=== PATIENT | female | born 2000 | race Caucasian/White ===

== ENCOUNTER 2020-10-02 00:47 | Emergency (ER) | payer OTHER ==
[~2020-10-02] VITALS: Ht 157.5 cm; Wt 63.6 kg
[2020-10-02] MEDS ORDERED: NS 1,000 ML IV ONE (01:15)
[2020-10-02 01:30] LABS: BASO % 0.4 % (0.0-1.0); EOS # 0.2 10^3/uL (0.0-0.5); EOS % 1.7 % (0.0-3.0); HEMATOCRIT 34.6 % (36.0-47.0); HEMOGLOBIN 11.3 g/dl (12.0-15.5); LYMPH # 2.2 10^3/uL (1.5-5.0); LYMPH % 23.2 % (24.0-44.0); MEAN CORPUSCULAR HEMOGLOBIN 27.8 pg (27.0-33.0); MEAN CORPUSCULAR HGB CONC 32.7 g/dl (32.0-36.5); MEAN CORPUSCULAR VOLUME 85.2 fl (80.0-96.0); MONO # 0.9 10^3/uL (0.0-0.8); MONO % 9.6 % (0.0-5.0); NEUTROPHILS # 6.1 10^3/uL (1.5-8.5); NEUTROPHILS % 64.8 % (36.0-66.0); PLATELET COUNT, AUTOMATED 254 10^3/uL (150-450); RED BLOOD COUNT 4.06 10^6/uL (4.00-5.40); WHITE BLOOD COUNT 9.5 10^3/uL (4.0-10.0)
[2020-10-02 01:58] LABS: ALBUMIN 3.7 GM/DL (3.2-5.2); ALT/SGPT 46 U/L (12-78); BILIRUBIN,DIRECT < 0.1 MG/DL (0.0-0.2); BILIRUBIN,TOTAL 0.2 MG/DL (0.2-1.0); LIPASE 90 U/L (73-393); TOTAL PROTEIN 6.8 GM/DL (6.4-8.2)
[2020-10-02] MEDS ORDERED: MORPHINE 4 MG/ML 1ML VIAL/SYRINGE (J2270) IV PRN (02:00)
[2020-10-02] MEDS ORDERED: KETOROLAC 30 MG/ML 1ML VIAL IV ONE (02:00)
[2020-10-02 03:22] LABS: CHLAMYDIA DNA AMPLIFICATION NEGATIVE (NEGATIVE); GC DNA AMPLIFICATION NEGATIVE (NEGATIVE)
--- NOTE | 2020-10-02 03:55 | REPVR ---
PROCEDURE INFORMATION: Exam: US Pelvis Complete, Transabdominal and US Pelvis, Transvaginal and US Duplex Artery and Vein, Ovaries, Complete Exam date and time: 10/02/2020 2:41 AM Age: 20 years old Clinical indication: Dyspareunia (painful intercourse); Additional info: Severe pelvic pain sudden during coitus, no history TECHNIQUE: Imaging protocol: Real-time transabdominal and transvaginal pelvic ultrasound (complete) with image documentation. Transvaginal imaging was used for better evaluation of the endometrium, adnexa, and/or cervix. Real-time duplex ultrasound scan of the arterial and venous flow of the ovaries with B-mode, color Doppler flow and spectral waveform analysis. COMPARISON: No relevant prior studies available. FINDINGS: Uterus/cervix: Uterus measures 8.6 x 4.3 x 5.5 cm. Endometrial stripe is 1 cm. Right adnexa: Right ovary measures 2.6 x 4.1 x 2 cm. Normal waveforms. Suggestion of involuting 1.3 cm right ovarian cyst. Left adnexa: Left ovary measures 4 x 2 x 2.7 cm. Normal waveforms. Intraperitoneal space: Small fluid in the cul-de-sac. Urinary bladder: Normal. IMPRESSION: No evidence of ovarian torsion bilaterally. Suggestion of involuting 1.3 cm right ovarian cyst. Small free fluid in the cul-de-sac. Electronically signed by: John Marshall On 10/02/2020 03:54:42 AM
[2020-10-02] MEDS ORDERED: NAPR-837 PO (05:24)
[2020-10-02 05:45] VITALS: BP 111/57
== END 2020-10-02 06:05 | disposition home or self-care (01) ==
LOC: M ED 00:47
DX: R10.2 Pelvic and perineal pain (principal); F31.9 Bipolar disorder, unspecified; Z87.440 Personal history of urinary (tract) infections; Z88.0 Allergy status to penicillin
CPT/HCPCS: 76830; 76856; 80047; 80076; 81001; 83690; 84702; 85025; 87210; 87661; 93976; 96361; 96374; 99285; J1885

== ENCOUNTER → 2021-02-12 | Outpatient (REF) | payer OTHER ==
[~2021-02-12] MED LIST: NAPR-837 PO
== END ==
LOC: M PLALAB 14:45
PROVIDERS: ATTEND Obstetrics & Gynecology
DX: N97.9 Female infertility, unspecified (principal); Z01.419 Encounter for gynecological examination (general) (routine) without abnormal findings

== ENCOUNTER → 2021-02-20 | Outpatient (REF) | payer OTHER ==
[2021-02-20 18:16] LABS: ESTRADIOL 151.6 PG/ML; FOLLICLE STIMULATING HORMONE 2.4 mIU/mL; FREE T4 0.96 NG/DL (0.76-1.46); LUTEINIZING HORMONE 0.8 mIU/mL; PROGESTERONE 10.71 NG/ML; THYROID STIMULATING HORMONE 1.41 uIU/ML (0.358-3.740)
== END ==
LOC: M PLALAB 15:47
PROVIDERS: ATTEND Obstetrics & Gynecology
DX: N97.9 Female infertility, unspecified (principal)

== ENCOUNTER → 2021-02-28 | Outpatient (REF) | payer OTHER ==
[2021-02-28 15:37] LABS: ESTRADIOL 39.6 PG/ML; FOLLICLE STIMULATING HORMONE 7.4 mIU/mL; LUTEINIZING HORMONE 4.5 mIU/mL
== END ==
LOC: M PLALAB 14:48
PROVIDERS: ATTEND Obstetrics & Gynecology
DX: N97.9 Female infertility, unspecified (principal)

== ENCOUNTER 2021-05-18 08:16 | Emergency (ER) | payer OTHER ==
[~2021-05-18] VITALS: Ht 154.9 cm; Wt 68.0 kg
[2021-05-18] MEDS ORDERED: PRENTAB53 PO (08:22)
[2021-05-18 09:12] LABS: HEMATOCRIT 34.2 % (36.0-47.0); HEMOGLOBIN 11.5 g/dl (12.0-15.5); MEAN CORPUSCULAR HEMOGLOBIN 28.3 pg (27.0-33.0); MEAN CORPUSCULAR HGB CONC 33.6 g/dl (32.0-36.5); MEAN CORPUSCULAR VOLUME 84.2 fl (80.0-96.0); PLATELET COUNT, AUTOMATED 247 10^3/uL (150-450); RED BLOOD COUNT 4.06 10^6/uL (4.00-5.40); WHITE BLOOD COUNT 12.4 10^3/uL (4.0-10.0)
[2021-05-18 09:52] LABS: BLOOD UREA NITROGEN 10 MG/DL (7-18); CARBON DIOXIDE LEVEL 25 MEQ/L (21-32); CHLORIDE LEVEL 110 MEQ/L (98-107); CREATININE FOR GFR 0.54 MG/DL (0.55-1.30); GLOMERULAR FILTRATION RATE > 60.0 (>60); GLUCOSE, FASTING 82 MG/DL (70-100); HCG, SERUM QUANTITATIVE 120622 MIU/ML; POTASSIUM SERUM 3.8 MEQ/L (3.5-5.1); SODIUM LEVEL 137 MEQ/L (136-145)
[2021-05-18] MEDS ORDERED: ONDA4TAB6 PO (10:26)
[2021-05-18 10:30] VITALS: BP 101/56
--- NOTE | 2021-05-18 21:08 | ECGEPIP ---
[facility] - ED Test Date: 2021-05-18 Pat Name: IGNACIO SINGH Department: Room: - Gender: Female Gift Manager: : 2000 Requested By: Doron Badillo Order Number: [id number] Reading MD: Estee Dick Measurements Intervals [place] Rate: 71 P: 44 [place]: 118 QRS: 12 QRSD: 96 T: 6 QT: 382 QTc: 415 Interpretive Statements Normal sinus rhythm with sinus arrhythmia Incomplete right bundle branch block No prior Electronically Signed on 05-18-2021 21:07:53 EDT by Estee Dick
== END 2021-05-18 10:41 | disposition home or self-care (01) ==
LOC: M ED 08:16
DX: O99.891 Other specified diseases and conditions complicating pregnancy (principal); R55 Syncope and collapse; O21.9 Vomiting of pregnancy, unspecified; O99.411 Diseases of the circulatory system complicating pregnancy, first trimester; I45.19 Other right bundle-branch block; Z3A.01 Less than 8 weeks gestation of pregnancy; Z88.0 Allergy status to penicillin

== ENCOUNTER → 2021-05-27 | Outpatient (REF) | payer OTHER ==
[~2021-05-27] MED LIST changes: +ONDA4TAB6 PO; +PRENTAB53 PO
== END ==
LOC: M PLALAB 11:05
PROVIDERS: ATTEND Obstetrics & Gynecology
DX: Z34.01 Encounter for supervision of normal first pregnancy, first trimester (principal)

== ENCOUNTER → 2021-05-29 | Outpatient (REF) | payer OTHER | LOC: M PLALAB 09:51 | PROVIDERS: ATTEND Obstetrics & Gynecology | DX: Z34.01 Encounter for supervision of normal first pregnancy, first trimester (principal) ==

== ENCOUNTER → 2021-06-13 | Outpatient (CLI) | payer OTHER ==
[2021-06-13 15:45] LABS: HEMATOCRIT 34.4 % (36.0-47.0); HEMOGLOBIN 11.4 g/dl (12.0-15.5); MEAN CORPUSCULAR HEMOGLOBIN 28.6 pg (27.0-33.0); MEAN CORPUSCULAR HGB CONC 33.1 g/dl (32.0-36.5); MEAN CORPUSCULAR VOLUME 86.4 fl (80.0-96.0); PLATELET COUNT, AUTOMATED 238 10^3/uL (150-450); RED BLOOD COUNT 3.98 10^6/uL (4.00-5.40); WHITE BLOOD COUNT 12.2 10^3/uL (4.0-10.0)
[2021-06-13 16:41] LABS: HIV 1&2 SCREEN CENTAUR NEGATIVE (NEGATIVE)
[2021-06-13 16:59] LABS: GC DNA AMPLIFICATION NEGATIVE (NEGATIVE)
== END ==
LOC: M PLALAB 13:32
PROVIDERS: ATTEND Obstetrics & Gynecology
DX: Z34.81 Encounter for supervision of other normal pregnancy, first trimester (principal)

== ENCOUNTER → 2021-06-27 | Outpatient (CLI) | payer OTHER | LOC: M PLALAB 10:30 | PROVIDERS: ATTEND Advanced Practice Midwife | DX: Z34.81 Encounter for supervision of other normal pregnancy, first trimester (principal); Z3A.00 Weeks of gestation of pregnancy not specified ==

== ENCOUNTER → 2021-08-27 | Outpatient (CLI) | payer OTHER ==
--- NOTE | 2021-08-27 12:49 | REP ---
INDICATION: ANATOMY COMPARISON: None. TECHNIQUE: Transabdominal obstetrical ultrasound with color Doppler evaluation. FINDINGS: Examination demonstrates a single live intrauterine in cephalic presentation. motion is identified by technologist. Placenta is noted anterior and grade 0 without evidence for placenta previa or abruption. Amniotic fluid volume is normal. Cervix measures 3.1 cm in length and appears closed.. Selected gestational age: 21 weeks 4 days with AMRIT 01/03/2022. Gestational age by current measurements 22 weeks 0 days with AMRIT 12/31/2021. FHR equals 139 beats per minute. BPD: 5.3 cm at 22 weeks 2 days HC: 19.7 cm at 21 weeks 6 days AC: 17.8 cm at 22 weeks 5 days FL: 3.7 cm at 21 weeks 4 days HL: 3.4 cm at 21 weeks 5 days HC/AC: 1.11 Estimated weight 482 grams (75thpercentile). Anatomical assessment demonstrates normal structures including cranium, choroid plexus, cavum, cerebellum/posterior fossa, facial features, lungs, four-chamber heart/ventricular outflow tracts, diaphragm, stomach, cord insertion/three-vessel cord, kidneys/bladder, spine, and extremities. IMPRESSION: Single live intrauterine in cephalic presentation demonstrating appropriate estimated weight. Anatomical assessment is complete and normal. <Electronically signed by Juan Miguel Arenas > 08/27/21 [id number]
== END ==
LOC: M WHC 11:53
PROVIDERS: ATTEND Advanced Practice Midwife
DX: Z36.89 Encounter for other specified antenatal screening (principal); Z3A.18 18 weeks gestation of pregnancy

== ENCOUNTER 2021-10-04 11:44 | Emergency (ER) | payer OTHER ==
[~2021-10-04] VITALS: Ht 157.5 cm; Wt 76.5 kg
[2021-10-04] MEDS ORDERED: NS 1,000 ML IV ONE (12:25)
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
--- OUTSIDE RECORDS SUMMARY | 2021-10-04 12:47 | CCD ---
Author Author [facility] Organization [facility] Address Unknown Phone Unavailable Care Team Providers Care Advertiser Name Role Phone Jacobo Evelio Unavailable PROBLEMS Type Condition ICD9-CM Code [id number] Code Onset Dates Condition S tatus W/U Status Risk SNOMED Code Notes Problem Female infertility of unspecified origin N97.9 Active confirmed 3222388 Problem Supervision of other normal Z34.80 Ac tive confirm 195911677 Problem Female infertility N97.9 Active confirmed 6 461817 ALLERGIES Allergen (clinical drug ingredient) Drug/Non Drug Allergy do cumented on EMR Reaction Allergy Type Onset Date Status penicillin V Penicillin Hives Drug Allergy Active ENCOUNTERS from 1999 to 2021-08-31 Encounter Location Date Provider Diagnosis [facility] [address] [place] [address] [place] [address] Aug, Evelio Centeno Encounter for superv ision of normal first in second trimester Z34.02 and 21 weeks gestation of Z3A.21 IMMUNIZATIONS No Information SOCIAL HISTORY Tobacco Use: [...] REASON FOR REFERRAL No Information VITAL SIGNS Weight 161.4 lbs Aug, Weight-kg 73.21 kg Aug, Height 62 in Aug, BMI 29.52 kg/m2 Aug, Blood pressure systolic 118 mm Hg Aug, Blood pressure diastolic 70 mm Hg Aug, MEDICATIONS Medication SIG (Take, Route, Frequency, Duration) [...] Information RESULTS No Results REASON FOR VISIT 4 wk pn MEDICAL (GENERAL) HISTORY Type Description Date Medical History bipolar Medical History anxiety Medical History depression Medical History PTSD Hospitalization History mental health Goals Section No Information Health Concerns No Information MEDICAL EQUIPMENT No Information MENTAL STATUS No Information FUNCTIONAL STATUS No Information ASSESSMENTS Encounter Date Diagnosis Assessment Notes Treatment Notes Treatm ent Clinical Notes Aug, Encounter for supervision of normal first in second trimester (ICD-10 - Z34.02) Aug, 21 weeks gestation of (ICD-10 - Z3A.21 ) PLAN OF TREATMENT Next Appt Details Provider Name:Heather Prieto, 2020-10-2 6 08:00:00 AM, [address] [facility], , [place], [address], Insurance Providers Payer Name Payer Address Payer Phone Insured Name Patient Relati onship to Insured Coverage Start Date Coverage End Date [place] [phone] GIANCARLO SINGH
--- OUTSIDE RECORDS SUMMARY | 2021-10-04 12:47 | CCD ---
Author Author [facility] Organization [facility] Address Unknown Phone Unavailable Care Team Providers Care Soda Room Operator Name Role Phone Dolores Raeann Unavailable PROBLEMS Type Condition ICD9-CM Code [id number] Code Onset Dates Condition S tatus W/U Status Risk SNOMED Code Notes Problem Female infertility of unspecified origin N97.9 Active confirmed 7597837 Problem Supervision of other normal Z34.80 Ac tive confirm 841991143 Problem Female infertility N97.9 Active confirmed 6 447786 ALLERGIES Allergen (clinical drug ingredient) Drug/Non Drug Allergy do cumented on EMR Reaction Allergy Type Onset Date Status Penicillin penicillin Hives Non Drug Allergy Active ENCOUNTERS from 1999 to 2021-08-26 Encounter Location Date Provider Diagnosis [facility] [address] [place] [address] [place] [address] Jul, Raeann Bernal 16 weeks gestatio n of Z3A.16 and Encounter for supervision of normal first , second trimester Z34.02 IMMUNIZATIONS No Information SOCIAL HISTORY Tobacco Use: [...] FOR REFERRAL No Information VITAL SIGNS Weight 156 lbs Jul, Weight-kg 70.76 kg Jul, Height 62 in Jul, BMI 28.533 kg/m2 Jul, Blood pressure systolic 120 mm Hg Jul, Blood pressure diastolic 64 mm Hg Jul, MEDICATIONS Medication SIG (Take, Route, Frequency, Duration) [...] Notes Treatment Notes Treatm ent Clinical Notes Jul, 16 weeks gestation of (ICD-10 - Z3A.16 ) Jul, Encounter for supervision of normal first , second trimester (ICD-10 - Z34.02) PLAN OF TREATMENT Treatment Notes Test Name Order Date [facility] OBS COMPLETE US 2021-07-24 Next Appt Details 4 Weeks Reason:- Routine follow up Provider Name:Jennifer Gonzalez, 2021-09-19 11:00:00 AM, [address] [facility], , [place], [address], Follow Up:4 Weeks- Routine follow up Insurance Providers Payer Name Payer Address Payer Phone Insured Name Patient Relati onship to Insured Coverage Start Date Coverage End Date [address] [phone] GIANCARLO SINGH
--- OUTSIDE RECORDS SUMMARY | 2021-10-04 12:47 | CCD ---
Author Author [facility] Organization [facility] Address Unknown Phone Unavailable Care Team Providers Care Rewards Consultant Name Role Phone Divyakarlene Heather Unavailable PROBLEMS Type Condition ICD9-CM Code [id number] Code Onset Dates Condition S tatus W/U Status Risk SNOMED Code Notes Problem Female infertility of unspecified origin N97.9 Active confirmed 5655810 Problem Supervision of other normal Z34.80 Ac tive confirm 787972741 Problem Female infertility N97.9 Active confirmed 6 359834 ALLERGIES Allergen (clinical drug ingredient) Drug/Non Drug Allergy do cumented on EMR Reaction Allergy Type Onset Date Status Penicillin penicillin Hives Non Drug Allergy Active ENCOUNTERS from 1999 to 2021-08-08 Encounter Location Date Provider Diagnosis [facility] [address] [place] [address] [place] [address] Jul, Heather Prieto IMMUNIZATIONS No Information SOCIAL HISTORY Tobacco Use: [...] Notes Start Da te End Date Status Promethazine HCl 12.5 MG 1 tablet as needed Orally every 6 hrs f or 30 day(s) May, Not-Taking Ondansetron 4 MG 1 tablet on the tongue and a llow to dissolve Orally every 6 hours as needed for nausea for 30 days May, Active Unisom Not-Taking 27-1 MG 1 tablet Orally Once a day Active Vitamin B6 50 MG 1 tablet Orally Not -Taking PROCEDURES No Information RESULTS No Results REASON FOR VISIT SOB/Sick MEDICAL (GENERAL) HISTORY Type Description Date Medical History bipolar Medical History anxiety Medical History depression Medical History PTSD Hospitalization History mental health Goals Section No Information Health Concerns No Information MEDICAL EQUIPMENT No Information MENTAL STATUS No Information FUNCTIONAL STATUS No Information ASSESSMENTS No Information PLAN OF TREATMENT Next Appt Details Provider Name:Evelio Centeno, 2021-08-22 10:45:00 AM, [address] [facility], , [place], [address], Insurance Providers Payer Name Payer Address Payer Phone Insured Name Patient Relati onship to Insured Coverage Start Date Coverage End Date [address] [phone] GIANCARLO SINGH
--- OUTSIDE RECORDS SUMMARY | 2021-10-04 12:47 | CCD ---
Author Author [facility] Organization [facility] Address Unknown Phone Unavailable Care Team Providers Care Farm Loan Representative Name Role Phone Heather Prieto Unavailable PROBLEMS Type Condition ICD9-CM Code [id number] Code Onset Dates Condition S tatus W/U Status Risk SNOMED Code Notes Problem Female infertility of unspecified origin N97.9 Active confirmed 9503654 Problem Supervision of other normal Z34.80 Ac tive confirm 860922364 Problem Female infertility N97.9 Active confirmed 6 486266 ALLERGIES Allergen (clinical drug ingredient) Drug/Non Drug Allergy do cumented on EMR Reaction Allergy Type Onset Date Status penicillin V Penicillin Hives Drug Allergy Active ENCOUNTERS from 1999 to 2021-09-17 Encounter Location Date Provider Diagnosis [facility] [address] [place] [address] [place] [address] Aug, Heather Prieto Encounter for superv ision of normal first , second trimester Z34.02 ; 24 weeks gestation of Z3A.24 and Encounter for immunization Z23 IMMUNIZATIONS Vaccine Route Administration Date Status Influenza 6mo & up Fluzone IM Intramuscular Sep 16, 2021 Admi nistered SOCIAL HISTORY Tobacco Use: Social History Observation [...] FOR REFERRAL No Information VITAL SIGNS Weight 166 lbs Aug, Weight-kg 75.3 kg Aug, Height 62 in Aug, BMI 30.362 kg/m2 Aug, Blood pressure systolic 120 mm Hg Aug, Blood pressure diastolic 70 mm Hg Aug, MEDICATIONS Medication SIG (Take, Route, Frequency, Duration) Notes Start Da te End Date Status Ondansetron 4 MG 1 tablet on the tongue and a llow to dissolve Orally every 6 hours as needed for nausea for 30 days May, Active Promethazine HCl 12.5 MG 1 tablet as needed Orally every 6 hrs f or 30 day(s) May, Not-Taking Vitamin B6 50 MG 1 tablet Orally Not -Taking 27-1 MG 1 tablet Orally Once a day Active Unisom Not-Taking PROCEDURES from 1999 to 2021-09-17 Procedure Date Ordered Result Body Site Imm: Fluzone 6mo & older 0.5mL IM Influenza 2021-09-16 N/A RESULTS No Results REASON FOR VISIT 4 [...] Aug, Encounter for supervision of normal first , second trimester (ICD-10 - Z34.02) Aug, 24 weeks gestation of (ICD-10 - Z3A.24 ) Aug, Encounter for immunization (ICD-10 - Z23) PLAN OF TREATMENT Treatment Notes Test Name Order Date CBC - Complete Blood Count 2021-09-16 Type and Screen (D Rh Antibody Screen) 2021-09-16 Glucose Challenge Test 1 Hour 2021-09-16 CHLAMYDIA & GC DNA AMPLIFICAT 2021-09-16 Next Appt Details 4 Weeks Reason: Provider Name:Tra Bueno, 08:00:00 AM, [address] [facility], , [place], [address], Follow Up:4 WeeksPrenatal Insurance Providers Payer Name Payer Address Payer Phone Insured Name Patient Relati onship to Insured Coverage Start Date Coverage End Date [address] [phone] GIANCARLO SINGH
--- OUTSIDE RECORDS SUMMARY | 2021-10-04 12:48 | CCD ---
Author Author [facility] Organization [facility] Address Unknown Phone Unavailable Care Team Providers Care Offset Platemaker Name Role Phone Maring, Vivek PA Unavailable Unavailable Maring, Vivek PA Unavailable Unavailable Maring, Vivek PA Unavailable Unavailable Maring, Vivek PA Unavailable Unavailable Maring, Vivek PA Unavailable Unavailable Maring, Vivek PA Unavailable Unavailable Maring, Vivek PA Unavailable Unavailable Maring, Vivek PA Unavailable Unavailable Maring, Vivek PA Unavailable Unavailable Maring, Vivek PA Unavailable Unavailable Maring, Vivek PA Unavailable Unavailable Maring, Vivek PA Unavailable Unavailable Maring, Vivek PA Unavailable Unavailable Maring, Vivek PA Unavailable Unavailable Maring, Vivek PA Unavailable Unavailable Maring, Vivek PA Unavailable Unavailable Cannan, Rosa Maria PA Unavailable Unavailable Feola, T Elvia PA Unavailable Unavailable Feola, T Elvia PA Unavailable Unavailable Feola, T Elvia PA Unavailable Unavailable Feola, T Elvia PA Unavailable Unavailable Feola, T Elvia PA Unavailable Unavailable Feola, T Elvia PA Unavailable Unavailable Feola, T Elvia PA Unavailable Unavailable Feola, T Elvia PA Unavailable Unavailable Feola, T Elvia PA Unavailable Unavailable Feola, T Elvia PA Unavailable Unavailable Feola, T Elvia PA Unavailable Unavailable Feola, T Elvia PA Unavailable Unavailable Feola, T Elvia PA Unavailable Unavailable Feola, T Elvia PA Unavailable Unavailable Feola, T Elvia PA Unavailable Unavailable Feola, T Elvia PA Unavailable Unavailable Feola, T Elvia PA Unavailable Unavailable Feola, T Elvia PA Unavailable Unavailable Feola, T Elvia PA Unavailable Unavailable Feola, T Elvia PA Unavailable Unavailable Feola, T Elvia PA Unavailable Unavailable Feola, T Elvia PA Unavailable Unavailable Feola, T Elvia PA Unavailable Unavailable Feola, T Elvia PA Unavailable Unavailable Feola, T Elvia PA Unavailable Unavailable Feola, T Elvia PA Unavailable Unavailable Feola, T Elvia PA Unavailable Unavailable Feola, T Elvia PA Unavailable Unavailable Feola, T Elvia PA Unavailable Unavailable Feola, T Elvia PA Unavailable Unavailable Feola, T Elvia PA Unavailable Unavailable Feola, T Elvia PA Unavailable Unavailable Feola, T Elvia PA Unavailable Unavailable Feola, T Elvia PA Unavailable Unavailable Feola, T Elvia PA Unavailable Unavailable Feola, T Elvia PA Unavailable Unavailable Feola, T Elvia PA Unavailable Unavailable Feola, T Elvia PA Unavailable Unavailable Feola, T Elvia PA Unavailable Unavailable Feola, T Elvia PA Unavailable Unavailable Feola, T Elvia PA Unavailable Unavailable Nabeel Kaufman MD Unavailable Unavailable Mandeep A India OROZCO Unavailable Unavailable Mandeep A India OROZCO Unavailable Unavailable Mandeep A India OROZCO Unavailable Unavailable Mandeep A India OROZCO Unavailable Unavailable Mandeep A India OROZCO Unavailable Unavailable Mandeep A India OROZCO Unavailable Unavailable Mandeep A India OROZCO Unavailable Unavailable Mandeep A India OROZCO Unavailable Unavailable Mandeep A India OROZCO Unavailable Unavailable Mandeep A India OROZCO Unavailable Unavailable Mandeep A India OROZCO Unavailable Unavailable Mandeep A India OROZCO Unavailable Unavailable Mandeep A India OROZCO Unavailable Unavailable Mandeep A India OROZCO Unavailable Unavailable Mandeep A India OROZCO Unavailable Unavailable Mandeep A India OROZCO Unavailable Unavailable Mandeep A India OROZCO Unavailable Unavailable Mandeep A India OROZCO Unavailable Unavailable Mandeep A India OROZCO Unavailable Unavailable Mandeep A India OROZCO Unavailable Unavailable Mandeep A India OROZCO Unavailable Unavailable Mandeep A India OROZCO Unavailable Unavailable Mandeep A India OROZCO Unavailable Unavailable Mandeep A India OROZCO Unavailable Unavailable Mandeep A India OROZCO Unavailable Unavailable Mandeep A India OROZCO Unavailable Unavailable Mandeep A India OROZCO Unavailable Unavailable Mandeep A India OROZCO Unavailable Unavailable Mandeep A India OROZCO Unavailable Unavailable Mandeep A India OROZCO Unavailable Unavailable Mandeep A India OROZCO Unavailable Unavailable Mandeep A India MD Unavailable Unavailable Mandeep A India MD Unavailable Unavailable Mandeep A India OROZCO Unavailable Unavailable Mandeep A India OROZCO Unavailable Unavailable Mandeep A India OROZCO Unavailable Unavailable Mandeep A India OROZCO Unavailable Unavailable Mandeep A India OROZCO Unavailable Unavailable Mandeep A India OROZCO Unavailable Unavailable Mandeep A India OROZCO Unavailable Unavailable Mandeep, A India OROZCO Unavailable Unavailable Mandeep, A India OROZCO Unavailable Unavailable Mandeep, A India OROZCO Unavailable Unavailable Mandeep, A India OROZCO Unavailable Unavailable Mandeep, A India OROZOC Unavailable Unavailable Mandeep, A [place] OROZCO Unavailable Unavailable Mandeep, A India OROZCO Unavailable Unavailable Mandeep, A India OROZCO Unavailable Unavailable Mandeep, A India OROZCO Unavailable Unavailable Mandeep, A India OROZCO Unavailable Unavailable Mandeep, A India OROZCO Unavailable Unavailable Mandeep, A India OROZCO Unavailable Unavailable Mandeep, A India OROZCO Unavailable Unavailable Mandeep, A India OROZCO Unavailable Unavailable Mandeep, A India OROZCO Unavailable Unavailable Mandeep, A India OROZCO Unavailable Unavailable Mandeep, A India OROZCO Unavailable Unavailable Mandeep, A India ROOZCO Unavailable Unavailable Mandeep, A India OROZCO Unavailable Unavailable Mandeep, A India OROZCO Unavailable Unavailable Mandeep, A India OROZCO Unavailable Unavailable Mandeep, A India OROZCO Unavailable Unavailable Mandeep, A India OROZCO Unavailable Unavailable Mandeep, A India OROZCO Unavailable Unavailable Mandeep, A India OROZCO Unavailable Unavailable Mandeep, A India OROZCO Unavailable Unavailable Mandeep, A India OROZCO Unavailable Unavailable Mandeep, A India OROZCO Unavailable Unavailable Mandeep, A India OROZCO Unavailable Unavailable Mandeep, A India OROZCO Unavailable Unavailable Mandeep, A India OROZCO Unavailable Unavailable Mandeep, A India OROZCO Unavailable Unavailable Mandeep, A India OROZCO Unavailable Unavailable Mandeep, A India OROZCO Unavailable Unavailable Mandeep, A India OROZCO Unavailable Unavailable Mandeep, A India OROZCO Unavailable Unavailable Mandeep, A India OROZCO Unavailable Unavailable Mandeep, A India OROZCO Unavailable Unavailable Mandeep, A India OROZCO Unavailable Unavailable Mandeep, A India OROZCO Unavailable Unavailable Mandeep, A India OROZCO Unavailable Unavailable CASAS, G EDWARD RPA Unavailable Unavailable CASAS, G EDWARD RPA Unavailable Unavailable CASAS, G EDWARD RPA Unavailable Unavailable CASAS, G EDWARD RPA Unavailable Unavailable CASAS, G EDWARD RPA Unavailable Unavailable CASAS, G EDWARD RPA Unavailable Unavailable CASAS, G EDWARD RPA Unavailable Unavailable CASAS, G EDWARD RPA Unavailable Unavailable CASAS, G EDWARD RPA Unavailable Unavailable CASAS, G EDWARD RPA Unavailable Unavailable CASAS, G EDWARD RPA Unavailable Unavailable CASAS, G EDWARD RPA Unavailable Unavailable CASAS, G EDWARD RPA Unavailable Unavailable CASAS, G EDWARD RPA Unavailable Unavailable CASAS, G EDWARD RPA Unavailable Unavailable CASAS, G EDWARD RPA Unavailable Unavailable CASAS, G EDWARD RPA Unavailable Unavailable CASAS, G EDWARD RPA Unavailable Unavailable CASAS, G EDWARD RPA Unavailable Unavailable CASAS, G EDWARD RPA Unavailable Unavailable CASAS, G EDWARD RPA Unavailable Unavailable CASAS, G EDWARD RPA Unavailable Unavailable CASAS, G EDWARD RPA Unavailable Unavailable CASAS, G EDWARD RPA Unavailable Unavailable CASAS, G EDWARD RPA Unavailable Unavailable CASAS, G EDWARD RPA Unavailable Unavailable CASAS, G EDWARD RPA Unavailable Unavailable CASAS, G EDWARD RPA Unavailable Unavailable CASAS, G EDWARD RPA Unavailable Unavailable CASAS, G EDWARD RPA Unavailable Unavailable CASAS, G EDWARD RPA Unavailable Unavailable CASAS, G EDWARD RPA Unavailable Unavailable CASAS, G EDWARD RPA Unavailable Unavailable CASAS, G EDWARD RPA Unavailable Unavailable CASAS, G EDWARD RPA Unavailable Unavailable CASAS, G EDWARD RPA Unavailable Unavailable CASAS, G EDWARD RPA Unavailable Unavailable Boston Concepcion MD Unavailable Unavailable Boston Concepcion MD Unavailable Unavailable Boston Concepcion MD Unavailable Unavailable Boston Concepcion MD Unavailable Unavailable Boston Concepcion MD Unavailable Unavailable Boston Concepcion MD Unavailable Unavailable Boston Concepcion MD Unavailable Unavailable Boston Concepcion MD Unavailable Unavailable Boston Concepcion MD Unavailable Unavailable Boston Concepcion MD Unavailable Unavailable Boston Concepcion MD Unavailable Unavailable Boston Concepcion MD Unavailable Unavailable Boston Concepcion MD Unavailable Unavailable Boston Concepcion MD Unavailable Unavailable Boston Concepcion MD Unavailable Unavailable Boston Concepcion MD Unavailable Unavailable Boston Concepcion MD Unavailable Unavailable Boston Concepcion MD Unavailable Unavailable Boston Concepcion MD Unavailable Unavailable Boston Concepcion MD Unavailable Unavailable Boston Concepcion MD Unavailable Unavailable Boston Concepcion MD Unavailable Unavailable Boston Concepcion MD Unavailable Unavailable Boston Concepcion MD Unavailable Unavailable Boston Concepcion MD Unavailable Unavailable Laith Jose PA-C Unavailable Unavailable Laith Jose PA-C Unavailable Unavailable Laith Jose PA-C Unavailable Unavailable Laith Jose PA-C Unavailable Unavailable Laith Joseer PA-C Unavailable Unavailable Laith Jose PA-C Unavailable Unavailable Laith Joseopher PA-C Unavailable Unavailable Laith Joseopher PA-C Unavailable Unavailable Laith Joseer PA-C Unavailable Unavailable Laith Joseopher PA-C Unavailable Unavailable Jose, M Christopher PA-C Unavailable Unavailable Jose, M Christopher PA-C Unavailable Unavailable Jose, M Christopher PA-C Unavailable Unavailable Jose, M Christopher PA-C Unavailable Unavailable Jose, M Christopher PA-C Unavailable Unavailable Jose, M Christopher PA-C Unavailable Unavailable Jose, M Christopher PA-C Unavailable Unavailable Jose, M Christopher PA-C Unavailable Unavailable Jose, M Christopher PA-C Unavailable Unavailable Jose, M Christopher PA-C Unavailable Unavailable Jose, M Christopher PA-C Unavailable Unavailable Jose, M Christopher PA-C Unavailable Unavailable Jose, M Christopher PA-C Unavailable Unavailable Jose, M Christopher PA-C Unavailable Unavailable Jose, M Christopher PA-C Unavailable Unavailable Jose, M Christopher PA-C Unavailable Unavailable Re-disclosure Warning The records that you are about to access may contain information from federally-assisted alcohol or drug abuse programs. If such information is present, then the following federally mandated warning applies: This information has been disclosed to you from records protected by federal confidentiality rules (42 CFR part 2). The federal rules prohibit you from making any further disclosure of this information unless further disclosure is expressly permitted by the written consent of the person to whom it pertains or as otherwise permitted by 42 CFR part 2. A general authorization for the release of medical or other information is NOT sufficient for this purpose. The Federal rules restrict any use of the information to criminally investigate or prosecute any alcohol or drug abuse patient.The records that you are about to access may contain highly sensitive health information, the redisclosure of which is protected by Article 27-F of the [facility] Public Health law. If you continue you may have access to information: Regarding HIV / AIDS; Provided by facilities licensed or operated by the [facility] Office of Mental Health; or Provided by the [facility] Office for People With Developmental Disabilities. If such information is present, then the following [facility] mandated warning applies: This information has been disclosed to you from confidential records which are protected by state law. State law prohibits you from making any further disclosure of this information without the specific written consent of the person to whom it pertains, or as otherwise permitted by law. Any unauthorized further disclosure in violation of state law may result in a fine or care home sentence or both. A general authorization for the release of medical or other information is NOT sufficient authorization for further disc losure. Encounters Encounter Providers Location Date Indications Data Source(s ) ( ESTOB) [facility] Est OB [address] [place] [address] 09/16/2021 12:00:00 AM EDT eCW1 ([facility]) Unknown [address] [facility] [address] 09/08/2021 12:00:00 AM EDT eCW1 ([facility]) ( ESTOB) [facility] Est OB [address] [place] [address] 08/22/2021 12:00:00 AM EDT eCW1 ([facility]) Unknown [address] [facility] [address] 08/07/2021 12:00:00 AM EDT eCW1 ([facility]) Outpatient Attender: Stephane MALLOYCAttender: Karma SCHNEIDER 08/06/2021 12:12:18 PM EDT - 08/06/2021 12:36:51 PM EDT [facility] ([facility]) ( ESTOB) [facility] Est OB [address] [place] [address] 07/24/2021 12:00:00 AM EDT eCW1 ([facility]) Outpatient Attender: Stephane Jose PA-C 07/18/2021 01:10:46 PM EDT - 07/18/2021 01:56:45 PM EDT [facility] Unknown [address] [facility] [address] 07/07/2021 12:00:00 AM EDT eCW1 ([facility]) Unknown [address] [facility] [address] 07/04/2021 12:00:00 AM EDT eCW1 ([facility]) ( ESTOB) [facility] Est OB [address] [place] [address] 06/26/2021 12:00:00 AM EDT eCW1 ([facility]) [place] [address] [facility] [address] 06/13/2021 12:00:00 AM EDT eCW1 ([facility]) [place] [address] [facility] [address] 06/09/2021 12:00:00 AM EDT eCW1 ([facility]) (WC ESTOB) [facility] [address] [place] [address] 05/29/2021 12:00:00 AM EDT eCW1 ([facility]) Outpatient Attender: OSEI CASAS RPA 05/18 11:32:15 AM EDT - 05/18/2021 02:04:00 PM EDT [facility] ([facility] ) Outpatient Attender: India Kaufman MD Main Office 05/02/2021 11:15:0 0 AM EDT [facility] ([facility] Outpatient Attender: India Kaufman MD Main Office 04/23/2021 10:30:0 0 AM EDT [facility] ([facility] [place] [address] [facility] [address] 04/08/2021 12:00:00 AM EDT eCW1 ([facility]) Outpatient Attender: Suzy Concepcion MDAttender: Vivek SCHNEIDER 03/19/2021 01:07:04 PM EDT - 03/19/2021 01:31:40 PM EDT [facility] ( [facility]) Outpatient Attender: Vivek SCHNEIDER 03/14/20 10:40:43 AM EDT - 03/14/2021 11:20:17 AM EDT [facility] ([facility] ) [place]patient [address] [facility] [address] 02/12/2021 12:00:00 AM EDT eCW1 ([facility]) Outpatient Attender: Suzy Concepcion MD 0 01/12/2021 04:19:52 PM EST - 01/12/2021 04:46:36 PM EST [facility] ([facility]) Outpatient Attender: Elvia SCHNEIDER 021 08:03:05 AM EST - 01/07/2021 08:30:40 AM EST [facility] ([facility] ) Outpatient Attender: Vivek Fergusonxochilt SCHNEIDER 12/20/19 12:53:00 PM EST - 12/20/2020 01:04:28 PM EST [facility] ([facility] ) Outpatient Attender: Elvia SCHNEIDER 021 10:03:52 AM EST - 12/18/2020 10:59:42 AM EST [facility] ([facility] ) Immunizations Vaccine Date Status Description Data Source(s) New in 2011. IIV4 09/16/2021 09:19:00 AM EDT completed eCW1 ([facility]) Medications Medication Brand Name Start Date Product Form Dose Route Admi nistrative Instructions Pharmacy Instructions Status Indications Reaction Description Data Source(s) Promethazine Hydrochloride 12.5 MG Oral Tablet Prometh azine HCl 12.5 MG Promethazine HCl 12.5 MG 06/09/2021 12:00:00 AM EDT 1.0 {tablet_as_ needed} suspended Promethazine HCl 12.5 MG eCW1 ([facility]) Promethazine Hydrochloride 12.5 MG Oral Tablet Prometh azine HCl 12.5 MG Promethazine HCl 12.5 MG 06/09/2021 12:00:00 AM EDT 1.0 {tablet_as_ needed} suspended Promethazine HCl 12.5 MG eCW1 ([facility]) Promethazine Hydrochloride 12.5 MG Oral Tablet Prometh azine HCl 12.5 MG Promethazine HCl 12.5 MG 06/09/2021 12:00:00 AM EDT 1.0 {tablet_as_ needed} suspended Promethazine HCl 12.5 MG eCW1 ([facility]) Promethazine Hydrochloride 12.5 MG Oral Tablet Prometh azine HCl 12.5 MG Promethazine HCl 12.5 MG 06/09/2021 12:00:00 AM EDT 1.0 {tablet_as_ needed} suspended Promethazine HCl 12.5 MG eCW1 ([facility]) Promethazine Hydrochloride 12.5 MG Oral Tablet Prometh azine HCl 12.5 MG Promethazine HCl 12.5 MG 06/09/2021 12:00:00 AM EDT 1.0 {tablet_as_ needed} suspended Promethazine HCl 12.5 MG eCW1 ([facility]) Promethazine Hydrochloride 12.5 MG Oral Tablet Prometh azine HCl 12.5 MG Promethazine HCl 12.5 MG 06/09/2021 12:00:00 AM EDT 1.0 {tablet_as_ needed} suspended Promethazine HCl 12.5 MG eCW1 ([facility]) Promethazine Hydrochloride 12.5 MG Oral Tablet Prometh azine HCl 12.5 MG Promethazine HCl 12.5 MG 06/09/2021 12:00:00 AM EDT 1.0 {tablet_as_ needed} active Promethazine HCl 12.5 MG eCW1 ([facility]) Promethazine Hydrochloride 12.5 MG Oral Tablet Prometh azine HCl 12.5 MG Promethazine HCl 12.5 MG 06/09/2021 12:00:00 AM EDT 1.0 {tablet_as_ needed} active Promethazine HCl 12.5 MG eCW1 ([facility]) Promethazine Hydrochloride 12.5 MG Oral Tablet Prometh azine HCl 12.5 MG Promethazine HCl 12.5 MG 06/09/2021 12:00:00 AM EDT 1.0 {tablet_as_ needed} suspended Promethazine HCl 12.5 MG eCW1 ([facility]) Promethazine Hydrochloride 12.5 MG Oral Tablet Prometh azine HCl 12.5 MG Promethazine HCl 12.5 MG 06/09/2021 12:00:00 AM EDT 1.0 {tablet_as_ needed} suspended Promethazine HCl 12.5 MG eCW1 ([facility]) Ondansetron 4 MG Disintegrating Oral Tablet Ondansetron 4 MG 05/29/2021 12:00:00 AM EDT 1.0 {tablet_on_the_tongue_and_allow_to_dissolve} active Ondansetron 4 MG eCW1 ([facility]) Ondansetron 4 MG Disintegrating Oral Tablet Ondansetron 4 MG 05/29/2021 12:00:00 AM EDT 1.0 {tablet_on_the_tongue_and_allow_to_dissolve} active Ondansetron 4 MG eCW1 ([facility]) Ondansetron 4 MG Disintegrating Oral Tablet Ondansetron 4 MG 05/29/2021 12:00:00 AM EDT 1.0 {tablet_on_the_tongue_and_allow_to_dissolve} active Ondansetron 4 MG eCW1 ([facility]) Ondansetron 4 MG Disintegrating Oral Tablet Ondansetron 4 MG 05/29/2021 12:00:00 AM EDT 1.0 {tablet_on_the_tongue_and_allow_to_dissolve} active Ondansetron 4 MG eCW1 ([facility]) Ondansetron 4 MG Disintegrating Oral Tablet Ondansetron 4 MG 05/29/2021 12:00:00 AM EDT 1.0 {tablet_on_the_tongue_and_allow_to_dissolve} active Ondansetron 4 MG eCW1 ([facility]) Ondansetron 4 MG Disintegrating Oral Tablet Ondansetron 4 MG 05/29/2021 12:00:00 AM EDT 1.0 {tablet_on_the_tongue_and_allow_to_dissolve} active Ondansetron 4 MG eCW1 ([facility]) Ondansetron 4 MG Disintegrating Oral Tablet Ondansetron 4 MG 05/29/2021 12:00:00 AM EDT 1.0 {tablet_on_the_tongue_and_allow_to_dissolve} active Ondansetron 4 MG eCW1 ([facility]) Ondansetron 4 MG Disintegrating Oral Tablet Ondansetron 4 MG 05/29/2021 12:00:00 AM EDT 1.0 {tablet_on_the_tongue_and_allow_to_dissolve} active Ondansetron 4 MG eCW1 ([facility]) Ondansetron 4 MG Disintegrating Oral Tablet Ondansetron 4 MG 05/29/2021 12:00:00 AM EDT 1.0 {tablet_on_the_tongue_and_allow_to_dissolve} active Ondansetron 4 MG eCW1 ([facility]) Ondansetron 4 MG Disintegrating Oral Tablet Ondansetron 4 MG 05/29/2021 12:00:00 AM EDT 1.0 {tablet_on_the_tongue_and_allow_to_dissolve} active Ondansetron 4 MG eCW1 ([facility]) Ondansetron 4 MG Disintegrating Oral Tablet Ondansetron 4 MG 05/29/2021 12:00:00 AM EDT 1.0 {tablet_on_the_tongue_and_allow_to_dissolve} active Ondansetron 4 MG eCW1 ([facility]) topiramate 25 MG Oral Tablet Topiramate 04/23/2021 12:00:00 AM EDT ORAL completed [facility] ([facility] Fluticasone Propionate Nasal [place] Fluticasone Propionate Na luciana [place] 04/23/2021 12:00:00 AM EDT active M [facility] ([facility] Insurance Providers Payer name Policy type / Coverage type Policy ID Covered constitution party ID Covered constitution party's relationship to velázquez Policy Velázquez Plan Information Family Health Plan / [id number] Spouse [id number] FFS Self Pay [id number] Self [id number] Family Health Plan / [id number] Spouse [id number] [facility] [id number] O UNA[facility]ILABLE [facility] [id number] [facility] [id number] Problems, Conditions, and Diagnoses Code Display Name Description Problem Type Effective Dates Data Source(s) Z34.80 care Supervision of other normal [place] 05/19/2021 12:00:00 AM EDT eCW1 ([facility]) N97.9 Female infertility Female infertility of unspecified o rigin Problem 04/08/2021 12:00:00 AM EDT eCW1 ([facility]) N97.9 Female infertility Female infertility Problem 12:00:00 AM EDT eCW1 ([facility]) Surgeries/Procedures Procedure Description Date Indications Data Source(s) INFLUENZA VIRUS VACC SPLIT PRSRV FREE 3 YRS/> IM 09/16 12:00:00 AM EDT eCW1 ([facility]) Results ID Date Data Source [id number] 08/06/2021 12:30:00 PM EDT [facility] Name Value Range Interpretation Code Description Data Chioma rce(s) Supporting Document(s) SARS-CoV-2 RNA Resp Ql ERIBERTO+probe NOT DETECTED [facility] This lab was ordered by DEBORA ellis and reported by DEBORA Solano. ID Date Data Source [id number] 05/02/2021 11:11:00 AM EDT [facility] ([facility] Name Value Range Interpretation Code Description Data Chioma rce(s) Supporting Document(s) Test Urine Laboratory test result [facility] ([facility] ID Date Data Source ANTI MULLERIAN HORMONE 02/20/2021 12:00:00 AM EDT eCW1 ([facility]) Name Value Range Interpretation Code Description Data Chioma rce(s) Supporting Document(s) 2.78 . ANTI MULLERIAN HORMONE eCW1 ([facility]) ID Date Data Source TESTOSTERONE FREE & TOTAL 02/20/2021 12:00:00 AM EDT eCW1 ([facility]) Name Value Range Interpretation Code Description Data Chioma rce(s) Supporting Document(s) 19.0 8-48 TESTOSTERONE TOTAL FOR T&D eCW 1 ([facility]) 0.8 0.0-4.2 TESTOSTERONE FREE (DIRECT ) eCW1 ([facility]) ID Date Data Source Dehydroepiandrosterone Sulfate 02/20/2021 12:00:00 AM EDT eC W1 ([facility]) Name Value Range Interpretation Code Description Data Chioma rce(s) Supporting Document(s) Dehydroepiandrosterone sulfate (DHEA-S) [Mass/volume] in Ser um or Plasma 280.0 110.0-431.7 DEHYDROEPIANDROSTERONE SULFATE eCW1 ([facility]) ID Date Data Source PROGESTERONE 02/20/2021 12:00:00 AM EDT eCW1 ([facility]) Name Value Range Interpretation Code Description Data Chioma rce(s) Supporting Document(s) 10.71 PROGESTERONE eCW1 ([facility]) ID Date Data Source TSH 02/20/2021 12:00:00 AM EDT eCW1 ([facility]) Name Value Range Interpretation Code Description Data Chioma rce(s) Supporting Document(s) 1.410 0.358-3.740 THYROID STIMULATING HORM ONE eCW1 ([facility]) ID Date Data Source PROLACTIN 02/20/2021 12:00:00 AM EDT eCW1 ([facility]) Name Value Range Interpretation Code Description Data Chioma rce(s) Supporting Document(s) 12.0 PROLACTIN eCW1 ([facility]) ID Date Data Source FREE T4 02/20/2021 12:00:00 AM EDT eCW1 ([facility]) Name Value Range Interpretation Code Description Data Chioma rce(s) Supporting Document(s) 0.96 0.76-1.46 FREE T4 eCW1 ([facility]) ID Date Data Source [facility] EVAL 02/20/2021 12:00:00 AM EDT eCW1 ([facility]) Name Value Range Interpretation Code Description Data Chioma rce(s) Supporting Document(s) 0.8 LUTEINIZING HORMONE eCW1 ([facility]) 2.4 FOLLICLE STIMULATING HORMONE e CW1 ([facility]) ID Date Data Source ESTRADIOL 02/20/2021 12:00:00 AM EDT eCW1 ([facility]) Name Value Range Interpretation Code Description Data Chioma rce(s) Supporting Document(s) 151.6 ESTRADIOL eCW1 ([facility]) ID Date Data Source PAP REQUEST FOR SERVICE 02/12/2021 12:00:00 AM EDT eCW1 ([facility]) Name Value Range Interpretation Code Description Data Chioma rce(s) Supporting Document(s) PAP REQUEST FOR SERVICE eCW1 ( [facility]) ID Date Data Source [id number] 01/12/2021 12:00:00 AM EST [facility] Name Value Range Interpretation Code Description Data Chioma rce(s) Supporting Document(s) SARS coronavirus 2 RNA [Presence] in Res piratory specimen by ERIBERTO with probe detection NEGATIVE [facility] and reported by [employer]. ID Date Data Source [id number] 01/12/2021 12:00:00 AM EST [facility] Name Value Range Interpretation Code Description Data Chioma rce(s) Supporting Document(s) Carestart Rapid COVID Antigen Test Negative [facility] This lab was reported by [facility] agustín. ID Date Data Source [id number] 01/07/2021 12:00:00 AM EST [facility] Name Value Range Interpretation Code Description Data Chioma rce(s) Supporting Document(s) SARS coronavirus 2 RNA [Presence] in Res piratory specimen by ERIBERTO with probe detection NEGATIVE [facility] This lab was ordered by [facility] jd Gonzalez and reported by [facility]. ID Date Data Source [id number] 01/07/2021 12:00:00 AM EST [facility] Name Value Range Interpretation Code Description Data Chioma rce(s) Supporting Document(s) Carestart Rapid COVID Antigen Test Negative [facility] This lab was reported by [facility] agustín. ID Date Data Source [id number] 12/18/2020 12:00:00 AM EST [facility] Name Value Range Interpretation Code Description Data Chioma rce(s) Supporting Document(s) SARS coronavirus 2 RNA [Presence] in Res piratory specimen by ERIBERTO with probe detection NEGATIVE [facility] This lab was ordered by [facility] jd [place] and reported by [facility]. ID Date Data Source [id number] 12/18/2020 12:00:00 AM EST [facility] Name Value Range Interpretation Code Description Data Chioma rce(s) Supporting Document(s) Carestart Rapid COVID Antigen Test Negative [facility] This lab was reported by [facility] agustín. Procedure Social History Code Duration Value Status Description Data Source(s ) Smoking 09/16/2021 12:00:00 AM EDT Never Smoker completed Never S moker eCW1 ([facility]) Smoking 08/30/2021 12:00:00 AM EDT Never Smoker completed Never S moker eCW1 ([facility]) Smoking 08/30/2021 12:00:00 AM EDT Never Smoker completed Never S moker eCW1 ([facility]) Smoking 08/22/2021 12:00:00 AM EDT Never Smoker completed Never S moker eCW1 ([facility]) Smoking 07/21/2021 12:00:00 AM EDT Never Smoker completed Never S moker eCW1 ([facility]) Smoking 05/29/2021 12:00:00 AM EDT Never Smoker completed Never S moker eCW1 ([facility]) Smoking 05/29/2021 12:00:00 AM EDT Never Smoker completed Never S moker eCW1 ([facility]) Smoking 05/29/2021 12:00:00 AM EDT Never Smoker completed Never S moker eCW1 ([facility]) Smoking 05/29/2021 12:00:00 AM EDT Never Smoker completed Never S moker eCW1 ([facility]) Smoking 05/29/2021 12:00:00 AM EDT Never Smoker completed Never S moker eCW1 ([facility]) Smoking 05/29/2021 12:00:00 AM EDT Never Smoker completed Never S moker eCW1 ([facility]) Smoking 05/02/2021 12:00:00 AM EDT Patient has never smoked co mpleted Patient has never smoked MEDENT ([facility] Smoking 04/07/2021 12:00:00 AM EDT Never Smoker completed Never S moker eCW1 ([facility]) Smoking 02/12/2021 12:00:00 AM EDT Never Smoker completed Never S moker eCW1 ([facility]) Vital Signs ID Date Data Source UNK Name Value Range Interpretation Code Description Data Source(s) Body mass index (BMI) [Ratio] 30.362 kg/m2 30.3 62 kg/m2 eCW1 ([facility]) Body weight 166 [lb_av] 166 [lb_av] eCW1 ([facility]) Body weight 75.3 kg 75.3 kg eCW1 ([facility]) Body height 62 [in_i] 62 [in_i] eCW1 ([facility]) Systolic blood pressure 120 mm[Hg] 120 mm[Hg] e CW1 ([facility]) Diastolic blood pressure 70 mm[Hg] 70 mm[Hg] eCW1 ([facility]) Body weight 161.4 [lb_av] 161.4 [lb_av] eCW1 ([facility]) Body weight 73.21 kg 73.21 kg eCW1 ([facility]) Body height 62 [in_i] 62 [in_i] eCW1 ([facility]) Body mass index (BMI) [Ratio] 29.52 kg/m2 29.52 kg/m2 eCW1 ([facility]) Systolic blood pressure 118 mm[Hg] 118 mm[Hg] e CW1 ([facility]) Diastolic blood pressure 70 mm[Hg] 70 mm[Hg] eCW1 ([facility]) Body weight 156 [lb_av] 156 [lb_av] eCW1 ([facility]) Body weight 70.76 kg 70.76 kg eCW1 ([facility]) Body height 62 [in_i] 62 [in_i] eCW1 ([facility]) Body mass index (BMI) [Ratio] 28.533 kg/m2 28.5 33 kg/m2 eCW1 ([facility]) Systolic blood pressure 120 mm[Hg] 120 mm[Hg] e CW1 ([facility]) Diastolic blood pressure 64 mm[Hg] 64 mm[Hg] eCW1 ([facility]) Body weight 155 [lb_av] 155 [lb_av] eCW1 ([facility]) Body weight 70.31 kg 70.31 kg W1 ([facility]) Body height 62 [in_i] 62 [in_i] eCW1 ([facility]) Body mass index (BMI) [Ratio] 28.35 kg/m2 28.35 kg/m2 W1 ([facility]) Systolic blood pressure 110 mm[Hg] 110 mm[Hg] e CW1 ([facility]) Diastolic blood pressure 68 mm[Hg] 68 mm[Hg] eCW1 ([facility]) Body weight 151.4 [lb_av] 151.4 [lb_av] eCW1 ([facility]) Body mass index (BMI) [Ratio] 27.691 kg/m2 27.6 91 kg/m2 W1 ([facility]) Systolic blood pressure 108 mm[Hg] 108 mm[Hg] e CW1 ([facility]) Diastolic blood pressure 68 mm[Hg] 68 mm[Hg] eCW1 ([facility]) Body weight 68.67 kg 68.67 kg eCW1 ([facility]) Body height 62 [in_i] 62 [in_i] eCW1 ([facility]) Systolic blood pressure 109 mm[Hg] 109 mm[Hg] M EDENT ([facility] Diastolic blood pressure 68 mm[Hg] 68 mm[Hg] MEDENT ([facility] Heart rate 89 /min 89 /min [facility] ([facility] Body temperature 97.0 [degF] 97.0 [degF] [facility] ([facility] Respiratory rate 17 /min 17 /min [facility] ( [facility] Body height 61.50 [in_i] 61.50 [in_i] MEDENT ([facility] 5'1.50" Body weight 152.00 [lb_av] 152.00 [lb_av] MEDEN T ([facility] Oxygen saturation in Arterial blood by Pulse oximetry 98 % 98 % MEDENT ([facility] [place] body weight 105 [lb_av] 105 [lb_av] MEDEN T ([facility] Body mass index (BMI) [Ratio] 28.3 kg/m2 28.3 k g/m2 [facility] ([facility] Body weight 152.38 [lb_av] 152.38 [lb_av] MEDEN T ([facility] Body mass index (BMI) [Ratio] 28.3 kg/m2 28.3 k g/m2 [facility] ([facility] Body height 61.50 [in_i] 61.50 [in_i] MEDENT ([facility] 5'1.50" [place] body weight 105 [lb_av] 105 [lb_av] MEDEN T ([facility] Heart rate 82 /min 82 /min MEDENT ([facility] Oxygen saturation in Arterial blood by Pulse oximetry 99 % 99 % MEDENT ([facility] Body temperature 97.6 [degF] 97.6 [degF] MEDENT ([facility] Respiratory rate 14 /min 14 /min MED[facility] ( [facility] Systolic blood pressure 110 mm[Hg] 110 mm[Hg] M EDENT ([facility] Diastolic blood pressure 66 mm[Hg] 66 mm[Hg] MEDENT ([facility] Body height 62 [in_i] 62 [in_i] W1 ([facility]) Body weight 150.6 [lb_av] 150.6 [lb_av] eCW1 ([facility]) Body weight 68.31 kg 68.31 kg eCW1 ([facility]) Systolic blood pressure 108 mm[Hg] 108 mm[Hg] e CW1 ([facility]) Diastolic blood pressure 64 mm[Hg] 64 mm[Hg] eCW1 ([facility]) Body mass index (BMI) [Ratio] 27.54 kg/m2 27.54 kg/m2 eCW1 ([facility]) Body weight 155.2 [lb_av] 155.2 [lb_av] eCW1 ([facility]) Body height 62 [in_i] 62 [in_i] eCW1 ([facility]) Body mass index (BMI) [Ratio] 28.38 kg/m2 28.38 kg/m2 eCW1 ([facility]) Systolic blood pressure 110 mm[Hg] 110 mm[Hg] e CW1 ([facility]) Diastolic blood pressure 66 mm[Hg] 66 mm[Hg] eCW1 ([facility]) Patient Treatment Plan of Care Planned Activity Planned Date Details Description Data Source (s) Promethazine Hydrochloride 12.5 MG Oral Tablet 06/09/2021 12:00:00 AM EDT eCW1 ([facility]) Promethazine Hydrochloride 12.5 MG Oral Tablet 06/09/2021 12:00:00 AM EDT eCW1 ([facility]) Ondansetron 4 MG Disintegrating Oral Tablet 05/29/2021 12:00:00 AM EDT eCW1 ([facility]) Ondansetron 4 MG Disintegrating Oral Tablet 05/29/2021 12:00:00 AM EDT eCW1 ([facility]) Ondansetron 4 MG Disintegrating Oral Tablet 05/29/2021 12:00:00 AM EDT eCW1 ([facility]) Ondansetron 4 MG Disintegrating Oral Tablet 05/29/2021 12:00:00 AM EDT eCW1 ([facility]) Ondansetron 4 MG Disintegrating Oral Tablet 05/29/2021 12:00:00 AM EDT eCW1 ([facility]) Ondansetron 4 MG Disintegrating Oral Tablet 05/29/2021 12:00:00 AM EDT eCW1 ([facility])
[2021-10-04 12:52] LABS: BASO % 0.1 % (0.0-1.0); EOS # 0.1 10^3/uL (0.0-0.5); EOS % 0.4 % (0.0-3.0); HEMATOCRIT 31.4 % (36.0-47.0); HEMOGLOBIN 10.6 g/dl (12.0-15.5); LYMPH # 1.5 10^3/uL (1.5-5.0); LYMPH % 9.8 % (24.0-44.0); MEAN CORPUSCULAR HEMOGLOBIN 29.4 pg (27.0-33.0); MEAN CORPUSCULAR HGB CONC 33.8 g/dl (32.0-36.5); MONO % 6.7 % (2.0-8.0); NEUTROPHILS # 12.2 10^3/uL (1.5-8.5); NEUTROPHILS % 82.3 % (36.0-66.0); PLATELET COUNT, AUTOMATED 247 10^3/uL (150-450); RED BLOOD COUNT 3.61 10^6/uL (4.00-5.40); WHITE BLOOD COUNT 14.9 10^3/uL (4.0-10.0)
[2021-10-04 13:34] LABS: BLOOD UREA NITROGEN 5 MG/DL (7-18); CALCIUM LEVEL 9.1 MG/DL (8.5-10.1); CARBON DIOXIDE LEVEL 25 MEQ/L (21-32); CHLORIDE LEVEL 107 MEQ/L (98-107); CK-MB VALUE MASS 1.4 NG/ML (<3.6); CPK CREATINE PHOSPHOKINASE 67 U/L (26-192); CREATININE FOR GFR 0.51 MG/DL (0.55-1.30); FREE T4 1.06 NG/DL (0.76-1.46); GLOMERULAR FILTRATION RATE > 60.0 (>60); GLUCOSE, FASTING 91 MG/DL (70-100); MAGNESIUM LEVEL 1.8 MG/DL (1.8-2.4); MB/CK RELATIVE INDEX 2.09 (< OR =4); POTASSIUM SERUM 3.5 MEQ/L (3.5-5.1); SODIUM LEVEL 138 MEQ/L (136-145); TROPONIN I < 0.02 NG/ML (< 0.10)
[2021-10-04] MEDS ORDERED: MACR100C43 PO (16:48)
[2021-10-04 16:52] VITALS: BP 109/63
--- NOTE | 2021-10-04 18:33 | ECGEPIP ---
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
== END 2021-10-04 17:50 | disposition home or self-care (01) ==
LOC: M ED 11:44
DX: R42 Dizziness and giddiness (principal); R82.71 Bacteriuria; O99.342 Other mental disorders complicating pregnancy, second trimester; F31.9 Bipolar disorder, unspecified; Z3A.22 22 weeks gestation of pregnancy; Z88.0 Allergy status to penicillin

== ENCOUNTER → 2021-10-07 | Outpatient (CLI) | payer OTHER ==
[~2021-10-07] MED LIST changes: +MACR100C43 PO
[2021-10-07 13:52] LABS: HEMATOCRIT 29.6 % (36.0-47.0); HEMOGLOBIN 9.7 g/dl (12.0-15.5); MEAN CORPUSCULAR HGB CONC 32.8 g/dl (32.0-36.5); MEAN CORPUSCULAR VOLUME 88.4 fl (80.0-96.0); PLATELET COUNT, AUTOMATED 242 10^3/uL (150-450); RED BLOOD COUNT 3.35 10^6/uL (4.00-5.40); WHITE BLOOD COUNT 12.5 10^3/uL (4.0-10.0)
[2021-10-07 15:08] LABS: GC DNA AMPLIFICATION NEGATIVE (NEGATIVE)
== END ==
LOC: M PLALAB 09:03
PROVIDERS: ATTEND Obstetrics & Gynecology
DX: Z34.02 Encounter for supervision of normal first pregnancy, second trimester (principal)

== ENCOUNTER → 2021-11-19 | Outpatient (CLI) | payer OTHER ==
--- NOTE | 2021-11-19 13:08 | REP ---
INDICATION: F/U ANATOMY COMPARISON: 08/27/2021 TECHNIQUE: Transabdominal obstetrical ultrasound with color Doppler evaluation. FINDINGS: Examination demonstrates a single live intrauterine in cephalic presentation. motion is identified by technologist. Placenta is noted anterior and grade 1 without evidence for placenta previa or abruption. Amniotic fluid volume is normal. Cervix measures 3.2 cm in length and appears closed.. Selected gestational age: 33 weeks 4 days with AMRIT 01/03/2022. Gestational age by current measurements 34 weeks 2 days with AMRIT 12/29/2021. FHR equals 160 beats per minute. BPD: 8.7 cm; 35 weeks 1 day; 72% HC: 31.8 cm; 35 weeks 6 days; 84% AC: 31.4 cm; 35 weeks 3 days; 77% FL: 6.4 cm; 33 weeks 2 days; 45% HL: 5.6 cm; 32 weeks 2 days; 29% HC/AC: 1.01 Estimated weight 2522 grams (79thpercentile). JEAN-PIERRE: 18.0 cm (8.2-24.7) IMPRESSION: Single live intrauterine in cephalic presentation demonstrating appropriate interval growth and estimated weight. <Electronically signed by Juan Miguel Arenas > 11/19/21 [id number]
== END ==
LOC: M WHC 12:29
PROVIDERS: ATTEND Obstetrics & Gynecology
DX: O26.843 Uterine size-date discrepancy, third trimester (principal); Z3A.32 32 weeks gestation of pregnancy

== ENCOUNTER 2021-11-23 09:41 | Outpatient (CLI) | payer OTHER ==
[~2021-11-23] VITALS: Ht 157.5 cm; Wt 77.9 kg
[2021-11-23 10:05] VITALS: BP 117/70
[2021-11-23] MEDS ORDERED: ACET-897 PO (10:14)
[2021-11-23] MEDS ORDERED: FERR325T3 PO (10:14)
[2021-11-23] MEDS ORDERED: MM S100C PO (10:14)
[2021-11-23 11:04] VITALS: BP 125/78
--- NOTE | 2021-11-23 11:12 | IPNPDOC ---
Text Note Date of Service The patient was seen on 11/23/21. NOTE S: Pt is a 21yo G 1 P 0 at 34 weeks 2 days EGA who presents with several complaints. Patient has been dealing with issues of constipation, currently taking Colace twice daily. Last night, patient's did a manual disimpaction and patient states that she was able to have a significant bowel movement after. However, she started to notice increased swelling in her labia with irritation. She is urinating without difficulty. She is passing gas. She also noticed decreased movement, and contractions. O: BP 125/78 HR 105 T 97.6 FHT 130 moderate variability, accelerations, no decelerations TOCO irritable SVE closed long and high, no stool appreciated through the posterior wall of the vagina. Left labia majora with moderate swelling, A/P: Pt is a 21yo G 1 P 0 at 34 weeks and 2 days EGA who presents with constipation, vulvar swelling, decreased movement Dispo: -Reactive NST -Cervix closed long and high -Recommend icing for labial swelling, likely due to straining with constipation -Recommend use of MiraLAX as needed VS,Fishbone, I+O VS, Fishbone, I+O Vital Signs Date Time Temp Pulse Resp B/P (MAP) Pulse Ox O2 Delivery O2 Flow Rate FiO2 11/23/21 10:05 97.6 92 18 117/70 (86) ALISE ALFONSO MD Nov 23, 2021 11:12
== END 2021-11-23 11:16 | disposition home or self-care (01) ==
LOC: M LDO 09:41
PROVIDERS: ATTEND Obstetrics & Gynecology
DX: O36.8130 Decreased fetal movements, third trimester, not applicable or unspecified (principal); O99.613 Diseases of the digestive system complicating pregnancy, third trimester; K59.00 Constipation, unspecified; O34.61 Maternal care for abnormality of vagina, first trimester; Z3A.34 34 weeks gestation of pregnancy
CPT/HCPCS: 59025; G0378; G0463

== ENCOUNTER → 2021-12-03 | Outpatient (REF) | payer OTHER ==
[~2021-12-03] MED LIST changes: +ACET-897 PO; +FERR325T3 PO; +MM S100C PO
== END ==
LOC: M SFHCWAGY 10:23
PROVIDERS: ATTEND Obstetrics & Gynecology
DX: Z34.03 Encounter for supervision of normal first pregnancy, third trimester (principal)

== ENCOUNTER → 2021-12-04 | Outpatient (CLI) | payer OTHER | LOC: M CARPUL 10:48 | PROVIDERS: ATTEND Internal Medicine Cardiovascular Disease | DX: R94.31 Abnormal electrocardiogram [ECG] [EKG] (principal) ==

== ENCOUNTER 2022-01-03 21:38 | Inpatient (IN) | payer OTHER ==
[~2022-01-03] VITALS: Ht 154.9 cm; Wt 80.8 kg
[2022-01-03 22:19] VITALS: BP 126/68
[2022-01-03 22:40] LABS: HEMATOCRIT 31.7 % (36.0-47.0); HEMOGLOBIN 10.3 g/dl (12.0-15.5); MEAN CORPUSCULAR HEMOGLOBIN 26.8 pg (27.0-33.0); MEAN CORPUSCULAR HGB CONC 32.5 g/dl (32.0-36.5); MEAN CORPUSCULAR VOLUME 82.3 fl (80.0-96.0); PLATELET COUNT, AUTOMATED 247 10^3/uL (150-450); RED BLOOD COUNT 3.85 10^6/uL (4.00-5.40); WHITE BLOOD COUNT 14.7 10^3/uL (4.0-10.0)
[2022-01-03] MEDS ORDERED: PROMETHAZINE INJ 25 MG/ML VIAL (J2550) IM ONE (23:45)
[2022-01-03] MEDS ORDERED: BUTORPHANOL 2 MG/ML INJ (J0595) IV ONE (23:45)
[2022-01-04] VITALS (79 sets, daily range): BP systolic 91–134; BP diastolic 49–85
[2022-01-04] MEDS ORDERED: miSOPROStol 50MCG 1/2 TABLET SL SCH
[2022-01-04] MEDS ORDERED: OXYTOCIN DRIP 30 UNITS in IV 1 EA IV SCH ×2
[2022-01-04] MEDS: LR 1,000 ML IV SCH ×3 (02:52→16:45)
[2022-01-04] MEDS ORDERED: FENTANYL 2MCG/ML ROPIVACAINE 0.2% IN 0.9% NACL 100ML IVBAG As Ordered ONE (05:16)
[2022-01-04] MEDS ORDERED: ePHEDrine SULFATE 25 MG/5 ML(5MG/ML) SYRINGE As Ordered ONE (06:53)
[2022-01-04] MEDS ORDERED: ePHEDrine SULFATE 25 MG/5 ML(5MG/ML) SYRINGE IV PRN (07:10)
[2022-01-04] MEDS ORDERED: ONDANSETRON 4MG/2ML VIAL IV PRN (07:10)
[2022-01-04] MEDS ORDERED: REFRIGERATOR IV KEYS XX PRN (07:10)
[2022-01-04] MEDS ORDERED: diphenhydrAMINE 50MG/ML VIAL (J1200) IV PRN (07:10)
[2022-01-04] MEDS ORDERED: EPIDURAL/PCA KEYS XX PRN (07:10)
[2022-01-04] MEDS ORDERED: LACTATED RINGER'S 1000 ML IV PRN (07:10)
[2022-01-04] MEDS ORDERED: EPIDURAL COMMENT XX SCH (07:10)
[2022-01-04] MEDS ORDERED: NALOXONE INJ 0.4MG/1ML VIAL (J2310 PER 1MG) IV PRN (07:10)
[2022-01-04] MEDS: FENTANYL/ROPIVACAINE/NACL BAG 100 ML EPIDURAL SCH ×2 (07:17→14:01)
[2022-01-04] MEDS ORDERED: LIDOCAINE 1% MDV 20ML VIAL As Ordered ONE (18:51)
[2022-01-04] MEDS ORDERED: DOCUSATE SODIUM 100MG CAPSULE PO PRN (19:05)
[2022-01-04] MEDS ORDERED: MEASLES,MUMPS,RUBELLA VACCINE INJ (MMR-II) (90707) SC SCH (19:05)
[2022-01-04] MEDS ORDERED: RHOGAM 300 MCG (1500 IU) INJ (J2790) IM SCH (19:05)
[2022-01-04] MEDS ORDERED: DIBUCAINE 1% OINTMENT 30GM TOP PRN (19:05)
[2022-01-04] MEDS ORDERED: ACETAMINOPHEN 500 MG TAB PO PRN (19:05)
[2022-01-04] MEDS ORDERED: LIDOCAINE 1% MDV 20ML VIAL INFIL ONE (19:05)
[2022-01-04] MEDS ORDERED: METHYLERGONOVINE MALEATE 0.2 MG TAB PO PRN (19:05)
[2022-01-04] MEDS ORDERED: OXYTOCIN DRIP 30 UNITS in IV 1 EA IV ONE (19:05)
[2022-01-04] MEDS ORDERED: ACETAMINOPHEN TAB 650MG DOSE (2X325MG) PO PRN (19:05)
[2022-01-04] MEDS ORDERED: IBUPROFEN 600MG TAB PO PRN (19:05)
[2022-01-04] MEDS: IBUPROFEN 800 MG TAB PO PRN (19:54)
[2022-01-05 05:14] VITALS: BP 111/57
[2022-01-05] MEDS: PRENATAL VITAMINS CHEWABLE TABLET PO SCH (08:02)
[2022-01-05] MEDS: IBUPROFEN 800 MG TAB PO PRN ×2 (08:02→21:25)
[2022-01-05 18:00] VITALS: BP 113/68
[2022-01-06 06:26] VITALS: BP 119/68
[2022-01-06] MEDS: PRENATAL VITAMINS CHEWABLE TABLET PO SCH (07:48)
== END 2022-01-06 12:30 | disposition home or self-care (01) | DRG 807 ==
LOC: M LDO 21:38 → M LDI 22:20 → M OBS 01-04 20:43
PROVIDERS: ADMIT Specialist; ATTEND Specialist
PROC: 10E0XZZ Delivery of Products of Conception, External Approach (ICD-10-PCS; principal; 2022-01-04)
PROC: 0KQM0ZZ Repair Perineum Muscle, Open Approach (ICD-10-PCS; 2022-01-04)
PROC: 10907ZC Drainage of Amniotic Fluid, Therapeutic from Products of Conception, Via Natural or Artificial Opening (ICD-10-PCS; 2022-01-04)
DX: O48.0 Post-term pregnancy (principal); Z37.0 Single live birth; Z3A.40 40 weeks gestation of pregnancy; O70.1 Second degree perineal laceration during delivery